=== PATIENT | female | born 1970 | race Hispanic/Latino ===

== ENCOUNTER 2023-03-27 00:20 | Observation (INO) | payer BC, SELFPAY ==
[2023-03-27 00:52] LABS: #Basophils 0.1 thou/uL (0.0-0.2); #Eosinphils 0.1 thou/uL (0.0-0.7); #Monocytes 0.8 thou/uL (0.11-0.59); #Neutrophils 5.4 thou/uL (1.40-6.50); %Basophils 0.6 % (0.0-1.0); %Eosinophils 1.4 % (0.0-10.0); %Lymphocytes 35.1 % (21.0-51.0); %Monocytes 8.3 % (0.0-10.0); Hemoglobin 5.3 g/dL (12.0-16.0); Mean Corpuscular HGB CONC 26.2 g/dL (32.0-36.0); Mean Corpuscular Hemoglobin 15.2 pg (27.0-31.0); Mean Corpuscular Volume 57.9 fl (78.0-98.0); Platelet Count 267 10x3/uL (130-400); RBC Distribution Width 18.7 % (11.5-14.5); Red Blood Cell (RBC) Count 3.49 mill/uL (4.20-5.40)
[2023-03-27 01:08] LABS: Manual Diff?? YES
[2023-03-27 01:14] LABS: ALT (SGPT) 10 U/L (8-55); AST (SGOT) 20 U/L (5-34); Albumin 4.1 g/dL (3.5-5.0); Alkaline Phosphatase 97 U/L (40-110); Anion Gap 15 mmol/L (10-20); BUN (Urea Nitrogen) 9 mg/dL (9.8-20.1); Bilirubin, Total 0.3 mg/dL (0.2-1.2); Calc. Creatinine Clearance 0 mL/min (70-130); Calcium 9.1 mg/dL (7.8-10.44); Carbon Dioxide 23 mmol/L (22-29); Chloride 105 mmol/L (98-107); Estimated GFR 76; Glucose 148 mg/dL (70-105); Potassium 3.6 mmol/L (3.5-5.1); Protein, Total 8.1 g/dL (6.0-8.3); Sodium 139 mmol/L (136-145)
[2023-03-27] MEDS ORDERED: Ondansetron ODT 4 MG TAB PO PRN (01:49)
[2023-03-27] MEDS ORDERED: Ondansetron PF 4 MG/2 ML Vial IVP PRN (01:49)
[2023-03-27] MEDS ORDERED: Acetaminophen 325 MG TAB PO PRN (01:49)
[2023-03-27 01:54] LABS: Band 3 % (5-11); Hypochromia MODERATE=16-30 cells HPF (0-5); Large Platelets 6.7 % (0-5); Lymphocytes 32 % (21-51); Microcytosis MODERATE=15-30 cells HPF (0-5); Monocytes 6 % (0-10); Neutrophil 58 % (42-75); Ovalocytes SLIGHT = 2-5 cells HPF (0-1); Platelet Adequacy Comment Platelets Normal; Polychromasia MODERATE = 3-4 cells HPF (0-2); Reflex for Review?? YES; Tear Drops SLIGHT = 2-5 cells HPF (0-1); Total Cell Count 119
[2023-03-27 02:33] LABS: Iron 13 ug/dL (50-170); Iron Binding Capacity, Total 529 mcg/dL (265-497); Transferrin, Serum 423 mg/dL (180-382)
[2023-03-27 02:41] VITALS: BMI 35.6
[2023-03-27] MEDS ORDERED: Iopamidol-370 76% 500 ML MDV (1 ML CHARGE) ONE (09:49)
[2023-03-27 11:27] LABS: Platelet Count 274 10x3/uL (130-400)
[2023-03-27 11:33] LABS: Hemoglobin 9.4 g/dL (12.0-16.0)
[2023-03-27 16:19] VITALS: BP 135/76; TEMP 98.3
== END 2023-03-27 16:17 | disposition home or self-care (01) ==
LOC: ERS 00:20 → INTOOBSV 01:26 → T4-A 01:26
PROVIDERS: ADMIT Internal Medicine; ATTEND Hospitalist
DX: N70.11 Chronic salpingitis (principal); N94.89 Other specified conditions associated with female genital organs and menstrual cycle; R53.1 Weakness; D64.9 Anemia, unspecified; Z79.82 Long term (current) use of aspirin; Z79.899 Other long term (current) drug therapy
CPT/HCPCS: 36415; 36416; 36430; 74177; 80053; 82728; 83540; 83550; 84466; 85025; 85060; 86850; 86900; 86901; 93005; G0378; P9016; Q9967

== ENCOUNTER 2024-06-23 14:33 | Outpatient (CLI) | payer BC | END 2024-06-23 14:34 | disposition home or self-care (01) | LOC: BICMAMMO 14:33 | PROVIDERS: ATTEND Family Medicine | DX: Z12.31 Encounter for screening mammogram for malignant neoplasm of breast (principal) | CPT/HCPCS: 77063; 77067 ==